=== PATIENT | male | born 1965 | race Caucasian/White ===

== ENCOUNTER 2016-04-08 07:49 | Emergency (ER) ==
--- NOTE | 2016-04-08 09:10 | Diag Imaging Result Document ---
PROCEDURE NAME: FLAT/UPRIGHT ABD/1 VIEW CHEST - 04/08/2016 FLAT AND UPRIGHT ABDOMEN: FINDINGS: There is some stool in the cecum and rectosigmoid colon. The small bowel and stomach are not distended. There is no evidence of organomegaly or mass. IMPRESSION: Constipation. PA CHEST: FINDINGS: There is a calcified granuloma in the left upper lobe. There is some fullness in the upper right hilum. There are no previous radiographs available for comparison. Otherwise, there is no evidence of acute pulmonary disease. IMPRESSION: Granulomatous changes. Advise comparison with previous studies.
[2016-04-08] MEDS ORDERED: CITRATE OF MAGNESIA PO ONE (09:27)
--- NOTE | 2016-04-08 09:32 | PROVIDER DOCUMENTATION ---
HPI-Abdominal Pain/GI Problem - General Chief Complaint: Constipation Stated Complaint: CONSTIPATED,PASSING BLOOD Time Seen by Provider: 04/08/16 09:27 Source: patient, family - History of Present Illness-ABD Nature of Presenting Problems: Presents to er with cc of constipation x 3 days. Reports last meal last night porkchops and bread. States brother has cancer unknown"has polyps". Denies taking any otc medication or prescribed medications. States been taking exlax with no relief. Denies n,v,d. Abdominal Pain Onset Location: reports: generalized abdomen Quality of Pain: reports: aching Severity in ED: reports: moderate Onset/Duration: reports: 3 days ago Timing: reports: still present Last BM: 1 week ago Dark Stools Present?: reports: none noticed Rectal Pain: reports: none Emesis Description: reports: none Bruising or Bleeding Gums?: No Similar Symptoms Previously?: No Recently seen or treated by another doctor?: No Review of Systems - Adult - REVIEW OF SYSTEMS - ADULT Constitutional: denies: chills, fever, fatique Eyes: reports: no symptoms reported Ears, Nose, Mouth & Throat: reports: no symptoms reported Cardiovascular: denies: chest pain, irregular heart rate, orthopnea Respiratory: reports: no symptoms reported Gastrointestinal: reports: abdominal pain, constipation. denies: diarrhea, nausea, rectal bleeding, vomiting Genitourinary: reports: no symptoms reported Musculoskeletal: reports: no symptoms reported Integumentary: reports: no symptoms reported Neurological: reports: no symptoms reported Psychiatric: reports: no symptoms reported Endocrine: reports: no symptoms reported Hematologic/Lymphatic: reports: no symptoms reported Allergic/Immunologic: reports: no symptoms reported All Other Systems: Reviewed and Negative Past History - Adult - PAST MEDICAL HISTORY-ADULT Review of Records: reports: Nursing Assessment Review, Medications Reviewed Major Childhood Illnesses: reports: denies history Cardiovascular: reports: denies history - PRIOR SURGERIES/PROCEDURES Surgical/Procedure History: reports: orthopedic (extremity) (right arm) - IMMUNIZATION STATUS Childhood Immunizations: See Nurse Assessment Flu Vaccine: See Nurse Assessment - FAMILY HISTORY Family History: reviewed, not pertinent - SOCIAL HISTORY Smoking: cigarettes, greater than 1 pack/day Provider spent 3-5 mins advising pt. on dangers of tobacco.: Discussed manners to quit use, and f/u contacts for add'l counseling. Substance Use: marijuana Physical Exam-General - PHYSICAL EXAM-ADULT Initial Vital Signs Reviewed: Yes - CONSTITUTIONAL General Appearance: appears well, alert, no apparent distress - EYES Eyes: PERRL/EOMI, pink conjunctivae - HEAD, EARS, NOSE, MOUTH & THROAT HENMT: normocephalic/atraumatic, moist mucous membranes, normal ENT inspection - NECK Neck: non-tender, full range of motion, supple, normal inspection - RESPIRATORY Respiratory: chest non-tender, lungs clear, normal breath sounds, no pleuratic chest pain, no respiratory distress, no accessory muscle use - CARDIOVASCULAR Cardiovascular: normal peripheral pulses, regular rate, rhythm, no edema, no gallop, no JVD, no murmur - GASTROINTESTINAL (ABDOMEN) Abdominal Exam: normal bowel sounds, soft, no organomegaly, no pulsatile mass, tenderness (mod llq) - GENITOURINARY Rectal Exam: other (large stools present; was unable to cooperate while MD tried to remove stool) - LYMPHATIC Lymphatic: no adenopathy - MUSCULOSKELETAL Back Exam: normal inspection, no CVA tenderness, no vertebral tenderness Extremity: normal range of motion, non-tender, normal gait, normal inspection, no pedal edema, no calf tenderness, normal capillary refill - SKIN Integumentary: normal color, normal turgor, warm/dry - NEUROLOGIC Neurologic: grossly normal, no motor/sensory deficits - PSYCHIATRIC Psych/Mental Status: normal mood/affect, normal thought content, normal thought process, oriented x 3 Progress - PLAN OF CARE/RESULTS Progress/Plan/Lab Results: Orders Category Date Time Status FLAT/UPRIGHT ABD/1 VIEW CHEST [RAD] Stat Exams 04/08/16 08:10 Draft Magnesium Citrate [Citrate of Magnesia] Med 04/08/16 09:27 Discontinued 300 ml PO NOW ONE Vital Signs - 24 hr 04/08/16 07:53 Temperature 97.4 F L Pulse Rate 87 Respiratory 20 Rate Blood Pressure 166/87 O2 Sat by Pulse 99 Oximetry - XRAY 1 XRAY: Bilateral XRAY Study: Abdomen Impression: Abnormal XRAY Interpretation: constipation Departure - Departure Time of Disposition Order: 09:31 DIAGNOSIS: Constipation Qualifiers: Constipation type: unspecified constipation type Qualified Code(s): K59.00 - Constipation, unspecified Disposition: HOME 01 Certified Medical Emergency: Emergent Condition: Stable Additional Instructions: High Fiber Diet. Follow up with GI. Drink plenty of water ED Follow Up Instructions: You have been treated by a care provider in the Emergency Department. These instructions are being provided to you so you can have an understanding of how to care for yourself upon discharge. Upon discharge from the Emergency Department, you are responsible for making arrangements for follow-up care by a physician of your choice. Take all prescribed medications as directed. Return to the Emergency Department immediately for any new or worsening symptoms. You may call the Physician Referral phone number at [phone] to obtain a list of Physicians who are taking new patients. Referrals: None,PCP [Primary Care Provider] - Roe Gasca MD [STAFF PHYSICIAN] - Attestation - Scribe Verification/Attestation Scribe:: Herlinda Dunne Acting as Scribe for:: Shawn Valerio Scribe documention review:: This chart was documented by a scribe and accurately reflects the service the provider performed and the decisions made by the provider.
[2016-04-08] MEDS ORDERED: MOTRIN ONE (10:49)
[2016-04-08] MEDS ORDERED: MOTRIN PO ONE (10:51)
[2016-04-08 10:52] VITALS: BP 183/89
== END 2016-04-08 10:52 | disposition home or self-care (01) ==
LOC: ED 07:49
DX: K59.00 Constipation, unspecified (principal); R10.32 Left lower quadrant pain; F17.210 Nicotine dependence, cigarettes, uncomplicated; Z71.6 Tobacco abuse counseling
CPT/HCPCS: 74022; 99283

== ENCOUNTER 2018-08-08 20:58 | Inpatient (IN) ==
[2018-08-08] MEDS ORDERED: MORPHINE IV ONE (22:00)
[2018-08-08] MEDS ORDERED: ZOFRAN IV ONE (22:00)
[2018-08-08 22:20] LABS: ALB/GLOB RATIO 0.6; ALBUMIN 2.1 g/dL (3.5-5.0); CALCIUM 7.6 mg/dL (8.8-10.2); POTASSIUM 5.2 mmol/L (3.5-5.1); TOTAL BILIRUBIN 0.64 mg/dL (0.20-1.00); TOTAL PROTEIN 5.8 g/dL (6.3-8.3)
[2018-08-08 22:49] LABS: BASO# 0.01 X1000 (0.0-0.2); BASO% 0.1 % (0.0-0.8); EOS# 0.22 X1000 (0.0-0.7); EOS% 1.7 % (0.0-10.0); HEMATOCRIT 35.5 % (42.0-52.0); HEMOGLOBIN 11.1 g/dL (14.0-18.0); IMM GRAN# 0.04 X1000 (0.0-0.04); IMM GRAN% 0.3 % (0.0-0.5); LYMPH# 0.43 X1000 (1.2-3.4); LYMPH% 3.4 % (20.5-51.1); MCH 25.4 PG (27-31); MCHC 31.3 g/dL (33-37); MCV 81.2 FL (81-99); MONO# 0.17 X1000 (0.11-0.59); MONO% 1.3 % (1.7-9.3); MPV 10.5 FL (7.4-10.4); NEUT# 11.93 X1000 (1.4-6.5); NEUT% 93.2 % (42.2-75.2); PLT 143 X1000 (130-400); RBC 4.37 XMIL (4.7-6.1); RDW 17.9 % (11.5-14.5)
--- NOTE | 2018-08-09 00:14 | PROVIDER DOCUMENTATION ---
This chart was entered by Sunitha Cunningham Scribe, acting as scribe for Annie Fowler MD. HPI-Abdominal Pain/GI Problem - General Chief Complaint: Abdominal Pain Stated Complaint: abdominal pain Time Seen by Provider: 08/08/18 21:27 Source: patient, family Allergies/Adverse Reactions: Patient Allergies Allergy/AdvReac Type Severity Reaction Status Date / Time No Known Allergies Allergy Verified 06/25/18 20:20 Home Medications: Home Medication List Medication Instructions Recorded Confirmed Last Taken Type Amlodipine [Norvasc] 5 mg PO DAILY 05/03/18 05/03/18 06/30/18 History Docusate Sodium 100 mg PO DAILY 05/03/18 05/03/18 06/30/18 History Sennosides [Senna Lax] 8.6 mg PO HS 05/03/18 05/03/18 06/29/18 History Rivaroxaban [Xarelto] 5 mg PO BID 06/25/18 06/25/18 06/30/18 History - History of Present Illness-ABD Nature of Presenting Problems: 52 yom w/family at bedside c/o no appetite, not drinking, odor coming from anus and constipated. pt distended and has hernia in abd. pt has sx scar from prev hernia sx. pt has hx of st 4 colon cancer w/ resection. pt has illeostomy bag in place w/no stool in it for 4 days. pt goes to dialysis and was last seen thursday. pt usually goes to dialysis in [place] but came to [place] to receive blood. pt very thin and frail. pt rx fentanyl, reglan, sorbitol, oxycodone, zofran and nexium. pt on medicaid and doesn't have reg pcp. Abdominal Pain Onset Location: reports: generalized abdomen Pain Radiation: reports: no radiation Review of Systems - Adult - REVIEW OF SYSTEMS - ADULT Constitutional: reports: no symptoms reported. denies: chills, fever, fatique Eyes: reports: no symptoms reported Ears, Nose, Mouth & Throat: reports: no symptoms reported Cardiovascular: reports: no symptoms reported Respiratory: reports: no symptoms reported Gastrointestinal: reports: see HPI, abdominal pain (gen abd), constipation, poor appetite. denies: diarrhea, nausea, vomiting Genitourinary: reports: no symptoms reported Musculoskeletal: reports: no symptoms reported Integumentary: reports: no symptoms reported Neurological: reports: no symptoms reported Psychiatric: reports: no symptoms reported Endocrine: reports: no symptoms reported Hematologic/Lymphatic: reports: no symptoms reported Allergic/Immunologic: reports: no symptoms reported All Other Systems: Reviewed and Negative Past History - Adult - PAST MEDICAL HISTORY-ADULT Review of Records: reports: Old Records Reviewed, Nursing Assessment Review, Medications Reviewed, Social history reviewed & non-contributory. Major Childhood Illnesses: reports: denies history Cardiovascular: reports: HTN Respiratory: reports: denies history Gastrointestinal: reports: cancer (colon) Obstetrical/Gynecological: reports: denies history Genitourinary: reports: dialysis Musculoskeletal: reports: denies history Neurological: reports: denies history Endocrine/Immune: reports: denies history Other Conditions: reports: denies history - PRIOR SURGERIES/PROCEDURES Surgical/Procedure History: reports: indwelling device, bowel surgery, orthopedic (extremity) (right arm) - IMMUNIZATION STATUS Childhood Immunizations: See Nurse Assessment Flu Vaccine: See Nurse Assessment - FAMILY HISTORY Family History: reviewed, not pertinent - SOCIAL HISTORY Smoking: cigarettes, less than 1 pack/day Provider spent 3-5 mins advising pt. on dangers of tobacco.: Discussed manners to quit use, and f/u contacts for add'l counseling. Substance Use: marijuana (occ) Physical Exam-General - PHYSICAL EXAM-ADULT Initial Vital Signs Reviewed: Yes - CONSTITUTIONAL General Appearance: alert, mild distress, thin. negative: lethargic, obtunded - EYES Eyes: PERRL/EOMI, pink conjunctivae - HEAD, EARS, NOSE, MOUTH & THROAT HENMT: normocephalic/atraumatic, moist mucous membranes, normal ENT inspection, TMs normal, pharynx normal, dental decay (missing multiple teeth). negative: hearing deficit, pharyngeal erythema, tonsillar exudate - NECK Neck: non-tender, full range of motion, supple, normal inspection - RESPIRATORY Respiratory: chest non-tender, lungs clear, normal breath sounds - CARDIOVASCULAR Cardiovascular: normal peripheral pulses, regular rate, rhythm - GASTROINTESTINAL (ABDOMEN) Abdominal Exam: normal bowel sounds, no pulsatile mass, distended, tenderness (gen abd), hernia. negative: non tender, soft, no organomegaly, abdominal bruit, abnormal bowel sounds, rigid, rebound - LYMPHATIC Lymphatic: no adenopathy - MUSCULOSKELETAL Back Exam: normal inspection, no CVA tenderness, no vertebral tenderness Extremity: normal range of motion, non-tender, normal inspection, deformity (bilat toes). negative: erythema, inflammation, slow capillary refill, tenderness Peripheral Pulses: dorsalis-pedis (R): 2+, dorsalis-pedis (L): 2+ - SKIN Integumentary: normal turgor, warm/dry, pallor. negative: normal color - NEUROLOGIC Neurologic: grossly normal, no motor/sensory deficits - PSYCHIATRIC Psych/Mental Status: normal mood/affect, normal thought content, normal thought process, oriented x 3, disheveled. negative: disoriented x 3, anxious, depressed affect Progress - PLAN OF CARE/RESULTS Progress/Plan/Lab Results: Vital Signs - 8 hr 08/08/18 21:34 Temperature 97.9 F Pulse Rate 112 H Respiratory Rate 18 Blood Pressure 137/98 O2 Sat by Pulse Oximetry 96 Orders Category Date Time Status CT ABDOMEN/PELVIS W/O CONTRAST [CT] Stat Exams 08/08/18 21:36 Ordered BLOOD CULTURE [BLDCUL] Stat Lab 08/08/18 21:37 Ordered CBC WITH ELECTRONIC DIFF [HEME] Stat Lab 08/08/18 21:37 Ordered COMPREHENSIVE METABOLIC PANEL [CHEM] Stat Lab 08/08/18 21:37 Ordered LACTATE, PLASMA [CHEM] Stat Lab 08/08/18 21:37 Ordered Result Diagrams: 08/08/18 22:30 08/08/18 21:16 - CT/MRI 1 CT Study: Abdomen (Impression: 1. Status post resection of the distal colon and/or rectumj. Masslike changes involving the pelvis, left greater than right may reflect neoplasm. 2. Large ascites may be secondary to underlying bowel process. 3. Marked distention of the gallbladder. 4. Moderate bilateral hydronephorosis and ureteral dilation likely secondary to pelvic pathology or prior surgery.), Pelvis Impression: Abnormal Comparison with other Films: no prior study - CONSULTS/PCP/HOSPITALIST Notification #1 *Consult/PCP/Hospitalist*: Time Discussed: 23:44 Reason/Comments: med team admit pt Consult Disposition: Admit #2 Consult: Dr. friend Time Discussed: 23:50 (pt will stay in [place] ) Reason/Comments: Dr. Friend admit pt, pt had option to go to [facility] or stay in [place] Consult Disposition: Admit Departure - Departure Date of Disposition Decision: 08/09/18 Time of Disposition Decision: 00:13 DIAGNOSIS: Abdominal pain Disposition: ADMITTED INPATIENT 09 Certified Medical Emergency: Emergent Condition: Good Referrals and Follow-Ups: None,PCP [Primary Care Provider] - - Critical Care Note This patient required my direct & personal management of CC.: No Attestation - Physician/ MAVERICK Attestation Patient care was provided by Advanced Practice Provider:: No The physician spent face to face time with patient:: Yes Advanced Practice Provider documentation review:: Supervising physician onsite and consulted in the evaluation and care of this patient. The physician did have a face to face encounter with the patient. This chart was documented by the indicated scribe, (Sunitha Cunningham Scribe) and accurately reflects the services I performed and decisions made by me, Annie Fowler MD, as attested by the provider's signature.
[2018-08-09] MEDS: MORPHINE IV PRN ×2 (01:29→04:49)
--- NOTE | 2018-08-09 02:49 | HISTORY AND PHYSICAL ---
PRIMARY CARE PHYSICIAN: None. CHIEF COMPLAINT: Abdominal pain. HISTORY OF PRESENTING ILLNESS: The patient is a 52-year-old male with a history of metastatic colon cancer, end-stage renal disease and DVT, who had presented to the emergency department with several days history of worsening abdominal pain. The patient apparently had a colon resection and has a colostomy bag, and he was having some follow-up at [facility]. However, it seems that they had recommended the patient go on hospice and he was reluctant to do that. He was seen in the emergency department due to worsening abdominal pain. His case was discussed with General Surgery due to the fact that the patient had a new mass seen on imaging and having probable bowel obstruction, patient will need admission for further management. At the time of my examination the patient denied any headache, fever, chills,chest pain or shortness of breath. He complained of abdominal pain. The patient is a poor historian. PAST MEDICAL HISTORY: Includes metastatic colon cancer, end-stage renal disease, and DVT. PAST SURGICAL HISTORY: Colectomy, colostomy bag, prostate surgery, bladder surgery. ALLERGIES: No known drug allergies. CURRENT MEDICATIONS: Include amlodipine 5 mg p.o. daily, pantoprazole 40 mg p.o. daily, aspirin 81 mg p.o. daily, fentanyl patch. SOCIAL HISTORY: A 30 pack-year history of smoking. No history of alcohol or illicit drug use. FAMILY HISTORY: Positive for coronary artery disease in mother. REVIEW OF SYSTEMS: Fourteen point review of systems is as in the HPI. Other systems negative. PHYSICAL EXAMINATION: GENERAL: A cooperative friendly male. He is frail and seemed lethargic, but he is without any respiratory distress. VITAL SIGNS: Temperature 97.9 degrees, pulse 112, respirations 18, blood pressure 137/98. HEENT: Atraumatic and normocephalic. Extraocular movements intact. PERRLA. NECK: No masses. CHEST: Clear to auscultation. CARDIOVASCULAR: Regular rate and rhythm. ABDOMEN: Has diffuse tenderness. Colostomy bag noted. EXTREMITIES: No edema. NEUROLOGIC: Nonfocal. SKIN: Warm. LABORATORIES AND STUDIES: WBC 12.80, hemoglobin 11.1, hematocrit 35.5, platelets 143,000. Sodium 138, potassium 5.2, chloride 95, CO2 is 21, BUN is 62, creatinine is 6.0, glucose is 84. ASSESSMENT: The patient is a 52-year-old male with a history of metastatic colon cancer, end- stage renal disease and DVT, who had presented to the emergency department with several days history of worsening abdominal pain. The patient had imaging done which did showed possible new mass; his case was discussed with General Surgery and apparently he will be admitted for further evaluation and management. 1. Abdominal pain. 2. Metastatic colon cancer. 3. End-stage renal disease. 4. Malnutrition with cachexia. PLAN: 1. We will admit the patient to medical floor. 2. Keep the patient nothing per oral. 3. General Surgery already consulted. 4. Continue with gentle hydration. 5. Consult Nephrology for dialysis. 6. We will continue to follow, reassess and make further recommendation based on the patient's clinical course. cc: Hank Friend MD MTDD
--- NOTE | 2018-08-09 05:44 | Diag Imaging Result Doc PS360 ---
EXAM: CT ABDOMEN/PELVIS W/O CONTRAST HISTORY: abdominal pain, obstruction TECHNIQUE: CT abdomen and pelvis without contrast COMPARISON: None. FINDINGS: There are right lower lobe infiltrates and atelectasis. Moderate to prominent ascites. The gallbladder is distended. No calcified stones. No focal hepatic lesion. Spleen is small. Normal pancreas and adrenal glands. There are multiple bilateral renal cysts and tiny stones. Mild bilateral hydronephrosis. The distal ureters are obscured. Prominent atherosclerosis. No aortic aneurysm. Prominent stool throughout the colon. There are sutures and postsurgical changes noted in the pelvis from apparent: Resection. Prominent soft tissue mixed with fat low in the pelvis. IMPRESSION: 1.Apparent distal colon resection with masslike appearance in the pelvis and about the anus which may reflect local recurrence. 2.Right lower lobe infiltrates and atelectasis 3.Ascites 4.Nonobstructing renal stones with mild hydronephrosis 5.Prominent atherosclerosis 6.A preliminary report was given at 10:53 PM on 08/08/2018 This exam was performed using automated exposure control, adjustment of mA or kV according to patient size, and/or use of iterative reconstruction technique. Electronically signed by Jake Suarez 08/09/2018 5:42 AM
--- NOTE | 2018-08-09 07:41 | Diag Imaging Result Doc PS360 ---
EXAM: CHEST-1 VIEW INDICATION: confirm NGT placement TECHNIQUE: One view COMPARISON: 04/08/2016 FINDINGS: The newly placed NG tube is identified. The tip projects below the diaphragm and is assumed to be in the lumen of the stomach in the expected position. There is a Vas-Cath in place in the right with the tip projecting over the region of the atriocaval junction. The lungs are overexposed due to focus on the NG tube. No discrete airspace consolidation is identified. There is a stable granuloma in the left upper lung zone. The cardiomediastinal silhouette and central vasculature are grossly unremarkable. Gas-distended loops of small bowel which were also seen on a very recent CT are again noted. IMPRESSION: NG tube in expected position as described. Electronically signed by Pancho Cunningham 08/09/2018 7:39 AM
--- NOTE | 2018-08-09 07:41 | GENERAL SURGERY CONSULTATION ---
DATE: 08/09/2018 REQUESTING PHYSICIAN: Hospitalist. REASON FOR CONSULTATION: Bowel obstruction. HISTORY OF PRESENT ILLNESS: A 52-year-old gentleman with what sounds like stage IV colon cancer, treated by Dr. Carrington at [facility], now presenting with a bowel obstruction. He was seen in the emergency department, had a CT scan that confirmed a bowel obstruction. He has been admitted by the hospitalist. He is mostly complaining of pain in his abdomen, decrease in appetite. He apparently had an ileostomy done at [facility]. He is also apparently on dialysis where he usually goes to [facility]. He has tried all sorts of pain medicine to try to help, but he did not improve. He also had a history of DVT. I was asked to weigh an opinion. PAST MEDICAL HISTORY: Includes hypertension, colon cancer stage IV, DVT, end-stage renal disease requiring dialysis. PAST SURGICAL HISTORY: Includes bowel surgery, indwelling catheter placement, orthopedic surgery. FAMILY HISTORY: Reviewed with the patient and noncontributory. SOCIAL HISTORY: Still smokes. HOME MEDICATIONS: Norvasc, senna, Xarelto. ALLERGIES: None. REVIEW OF SYSTEMS: A full 10-point review of systems obtained and negative except as specified in the HPI. PHYSICAL EXAMINATION: Vital Signs: The patient is currently afebrile. He does have a heart rate in the low 100s, but otherwise his blood pressure is stable. General: A chronically ill, cachectic-looking male, looks older than stated age. HEENT: Normocephalic, atraumatic. Pupils equal, round, reactive to light. Mucous membranes moist. Oropharynx benign. Neck: Supple trachea midline. Cardiovascular: Regular rate and rhythm. Lungs: Grossly clear. Abdomen: Protuberant. Ileostomy, or at least some kind of ostomy, in the left lower quadrant. No drainage in the ostomy appliance. He has got previous surgical scars that appear to be healing. He has some diffuse tenderness. Extremities: Cachectic. Neurologic: Grossly intact. Skin: No signs of jaundice. Vascular: All extremities perfused. LABORATORY DATA: White blood cell count is 12, hematocrit 35, platelet count 143,000. Remainder of labs reviewed. CT scan independently reviewed and preliminary radiology report reviewed. ASSESSMENT AND PLAN: A 52-year-old with bowel obstruction in the setting of stage IV colon cancer. Bowel obstruction in the setting of colon cancer: At this time, I would recommend just NG tube and decompression. He would be high risk for any kind of surgical intervention. It looks like he still has a persistent mass down in his pelvis, and the patient said that they could not resected it all, so I imagine this represents continued growth of the mass. He is not an ideal surgical candidate, and we would like to, again, try to treat him nonoperatively, but we will see how he does. My partners will follow him while I am out of town this week. cc: Waldo Cifuentes MD
[2018-08-09 08:46] LABS: ALBUMIN 2.1 g/dL (3.5-5.0); CALCIUM 8.1 mg/dL (8.8-10.2); CREATININE 6.2 mg/dL (0.7-1.2); PHOSPHORUS 9.9 mg/dL (2.7-4.5); POTASSIUM 5.7 mmol/L (3.5-5.1)
[2018-08-09] MEDS: DILAUDID IV PRN ×5 (08:49→23:08)
[2018-08-09] MEDS ORDERED: HEPARIN IV PRN (10:10)
[2018-08-09] MEDS ORDERED: NS 2,000 ML MISC PRN (10:10)
--- NOTE | 2018-08-09 13:00 | NEPHROLOGY CONSULTATION ---
DATE: 08/09/2018 REASON FOR ADMISSION: Abdominal discomfort and pain with known colon cancer. REASON FOR CONSULT: End-stage renal disease. HISTORY OF PRESENT ILLNESS: Mr. Ritchie is a 52-year-old white male with a known history of metastatic colon cancer with end-stage renal disease, DVT. Patient presented to the emergency department yesterday afternoon for worsening abdominal pain, had a recent colon resection with colostomy bag. Presented to the emergency room, was found to have a new mass on imaging with questionable bowel obstruction. He denies at this time any chest pain. No increased work of breathing. No headaches, fever or chills. No nausea, vomiting, decreased appetite. Abdominal pain is positive. The patient is a poor historian. PAST MEDICAL HISTORY: Metastatic colon cancer, end-stage renal disease, DVT, anemia of chronic disease. PAST SURGICAL HISTORY: Colectomy, colostomy bag, prostate surgery, bladder surgery, tunnel dialysis catheter to the right chest wall. SOCIAL HISTORY: A 30 pack per year smoker. No history of alcohol or illicit drug use or abuse. FAMILY HISTORY: Positive coronary artery disease with mother. No end-stage renal disease. ALLERGIES: Listed as no known drug allergies. HOME MEDICATIONS: Have yet to be reconciled. REVIEW OF SYSTEMS: Times 10 with pertinent positives listed above in the HPI. PHYSICAL EXAMINATION: Vital Signs: Most recent vital signs show temperature 98.1, blood pressure 145/93, heart rate 97, respirations 20. He is on 4 L nasal cannula, last recorded saturation 100%. He has had 0 recorded in or out. General: This is a 52-year-old white male who appears in no acute distress. He appears chronically ill and cachectic in appearance. HEENT: Normocephalic, atraumatic. Conjunctivae pale. He has JOCELYNE. Mucous membranes are dry. Neck: Supple. Trachea midline. No evidence of JVD. Cardiovascular: Regular rate and rhythm. He is slightly tachycardic. He is currently on O2. Abdomen: Protuberant with an ileostomy with colostomy bag in place. Hypo bowel sounds. Genitourinary: Not inspected. Minimal void with dialysis assist. Extremities: No edema. No clubbing or cyanosis. Neurological: He is alert to person and to place. LABORATORY STUDIES: Sodium 138, potassium 5.7, chloride 96, CO2 21, BUN 69, creatinine 6.2, glucose is 94. Anion gap of 21, calcium 8.1 phosphorus 9.9, albumin is 2.1. Previous hemoglobin of 11.1. ASSESSMENT AND PLAN: 1. Chronic kidney disease, stage 5D. The patient is due for his routine dialysis treatment today. We will place him on a 2K bath, 3.5 hours and attempt to pull to his outpatient dry weight. 2. Electrolytes and acid-base balance with correction on dialysis. 3. Anemia. Patient received 2 units of packed red blood cells on Thursday on an outpatient basis. No indications for intervention today. 4. Bowel obstruction in the context of stage IV colon cancer. Surgery has been consulted with recommendations of decompression. 5. Poor catheter function. Will ask surgery for a new tunneled catheter. rg I would like to thank you for allowing us to follow with this patient. Dictated by DANTE Fuller for Roberto Wilder MD Face to face encounter, data reviewed, discussed with Blanca Santos on 08/09/18. I agree with the above assessment and plan of care. susie cc: DANTE Fuller MD [facility]
[2018-08-09] MEDS ORDERED: HEPARIN 25,000 UNITS/D5W 25,000 UNIT/250 ML IV.SOLN IV SCH (13:30)
--- NOTE | 2018-08-09 14:00 | PROGRESS NOTE ---
DATE: 08/09/2018 SUBJECTIVE: The patient presenting with symptoms of abdominal obstruction. Has known stage IV colon cancer. A CT scan consistent with obstruction related to mass. History is somewhat scant as patient is a poor historian and most of his care has been at [facility]. OBJECTIVE: Surgery has been consulted for and recommends conservative therapy. The patient with NG tube to suction. Treating symptomatically. Nephrology on board for dialysis. Today is his usual dialysis day. Will likely dialyze today. CT of the abdomen and pelvis also showing a likely pneumonia of the right lower lobe. Hopefully, we will place patient on Rocephin and Azithromycin for possible community-acquired pneumonia. Given home therapy with Xarelto for DVT. Will place patient on heparin drip for now until final decision regarding surgery is made.
[2018-08-09] MEDS: ZITHROMAX 500 MG/NS 500 MG/250 ML IVPB IV SCH (14:06)
[2018-08-09] MEDS: ROCEPHIN 1 GM in NS 50 ML IV SCH (14:06)
[2018-08-09] MEDS ORDERED: CATHFLO IV ONE ×4 (14:58→16:06)
[2018-08-09] MEDS ORDERED: STERILE WATER INJ. INJ ONE ×2 (14:59→16:06)
[2018-08-10] MEDS: DILAUDID IV PRN ×6 (02:07→23:59)
[2018-08-10] MEDS ORDERED: TIGHT: 0.2 ML/HR FOR DIALYSIS MISC PRN (05:45)
[2018-08-10] MEDS ORDERED: NS 2,000 ML MISC PRN (05:45)
[2018-08-10] MEDS ORDERED: HEPARIN IV PRN (05:45)
[2018-08-10] MEDS ORDERED: DIPRIVAN 1% ONE (06:25)
[2018-08-10] MEDS ORDERED: XYLOCAINE-MPF 2% ONE (06:25)
[2018-08-10] MEDS ORDERED: NS 250 ML ONE (06:34)
[2018-08-10] MEDS ORDERED: XYLOCAINE 1%/EPI 1:100,000 ONE (06:34)
[2018-08-10 06:54] LABS: EOS# 0.01 X1000 (0.0-0.7); EOS% 0.1 % (0.0-10.0); HEMATOCRIT 34.9 % (42.0-52.0); HEMOGLOBIN 10.9 g/dL (14.0-18.0); IMM GRAN# 0.03 X1000 (0.0-0.04); IMM GRAN% 0.3 % (0.0-0.5); LYMPH# 0.34 X1000 (1.2-3.4); LYMPH% 2.9 % (20.5-51.1); MCH 25.7 PG (27-31); MCHC 31.2 g/dL (33-37); MCV 82.3 FL (81-99); MONO# 0.17 X1000 (0.11-0.59); MONO% 1.5 % (1.7-9.3); NEUT# 11.14 X1000 (1.4-6.5); NEUT% 95.2 % (42.2-75.2); PLT 115 X1000 (130-400); RBC 4.24 XMIL (4.7-6.1); RDW 17.9 % (11.5-14.5); WBC 11.69 X1000 (4.8-10.8)
[2018-08-10] MEDS ORDERED: HEPARIN ONE (06:57)
[2018-08-10 07:20] LABS: ANISOCYTOSIS 1+; BANDS 8 % (0-1); LARGE PLATELETS 1+; LYMPHS 2 % (21-51); SEGS 90 % (42-75)
[2018-08-10] MEDS ORDERED: QUELICIN (DOSE) ONE (07:32)
[2018-08-10 07:36] LABS: CREATININE 7.2 mg/dL (0.7-1.2)
[2018-08-10 07:53] LABS: POTASSIUM 6.3 mmol/L (3.5-5.1)
--- NOTE | 2018-08-10 12:55 | PROGRESS NOTE ---
DATE: 08/10/2018 INTERVAL HISTORY: The patient is seen while on dialysis. Still complaining of significant abdominal pain. No bowel movement so far. No acute events overnight. No new complaints. REVIEW OF SYSTEMS: A 12-point review of systems is negative except as per interval history. LABORATORY DATA: WBC 11.69, hemoglobin 10.9, hematocrit 34.9, platelets 115,000. Sodium 142, potassium 6.3, bicarb 22, BUN 79, creatinine 7.2, calcium 8, glucose 85. VITAL SIGNS: T-max 98.1 degrees, pulse 96, respirations 21, blood pressure 145/95, O2 saturation 100% on 4 L by nasal cannula. PHYSICAL EXAMINATION: General: No acute distress. Chronically ill-appearing. Significant muscle wasting/cachexia. HEENT: Normocephalic, atraumatic. Cachexia as above. No cervical adenopathy. Cardiovascular: Regular rate and rhythm at the time of my exam. No murmurs noted. Pulmonary: Clear to auscultation bilaterally. Abdomen: Slightly distended. Ileostomy with bag in place. Bowel sounds significantly hypoactive but some sounds are present. Extremities: Peripheral pulses decreased but intact. No clubbing or cyanosis. Neurologic: Cranial nerves grossly intact. Globally weak but no focal deficits identified. Psychiatric: Normal mood and affect. Awake, alert, oriented x3. Skin: No new rashes or lesions identified. ASSESSMENT AND PLAN: 1. Advanced stage colon cancer with obstruction. Surgery on board and recommending conservative management. Nasogastric tube in place with ongoing drainage. No improvement so far. Continue conservative management and we will recheck abdominal x-ray in the morning. 2. End-stage renal disease. Nephrology following. Management as per them. 3. Hyperkalemia. Nephrology planning on dialysis today, which should treat this. 4. Possible pneumonia. CT abdomen with possible lower lobe pneumonia. On antibiotics with Rocephin and azithromycin for this. Continue to monitor. 5. Chronic pain. Continue home medications and with Dilaudid for breakthrough. 6. History of recent deep venous thrombosis. Patient with deep venous thrombosis 3 to 4 months ago. We will continue on heparin drip for now in case he needs further procedures.
[2018-08-10] MEDS ORDERED: HEPARIN 25,000 UNITS/D5W 25,000 UNIT/250 ML IV.SOLN IV SCH (15:45)
[2018-08-10 16:25] LABS: INR 0.91
--- NOTE | 2018-08-10 16:54 | ECHO REPORT ---
ORDER DATE: 08/09/2018 INDICATION: Metastatic colon cancer, end-stage renal disease. DVT. FINDINGS: This is an extremely difficult study with poor windows. In addition, the patient was not able to tolerate the procedure despite analgesics being given. 1. Right atrium appears mildly enlarged. There is a linear echo density, probably consistent with a catheter tip noted in the right heart chambers. 2. The right ventricle appears to have normal RV systolic function. 3. The left ventricle was very difficult to visualize. The LV systolic function is extremely difficult to estimate. It appears to be reduced, but windows or so poor and endocardial border resolution is so difficult, accurate estimate is very limited. 4. Doppler evaluation on this patient is very limited. No obvious severe valvular abnormalities, but there was poor evaluation of the mitral valve and aortic valves due to patient compliance as well as imaging difficulties. 5. There is no pericardial effusion identified. cc: MD Clare Santos CRNP
[2018-08-10] MEDS ORDERED: NS 500 ML ONE (17:26)
[2018-08-10] MEDS: ROCEPHIN 1 GM in NS 50 ML IV SCH (17:28)
--- NOTE | 2018-08-10 19:17 | NEPHROLOGY PROGRESS NOTE ---
DATE: 08/10/2018 DATE AND TIME: Date seen 08/10/2018. Time seen Is 0635. SUBJECTIVE: Mr. Ritchie is resting quietly in bed. Was unable to dialyze yesterday. He is planned for a dialysis tunneled catheter placement today. He is n.p.o.. OBJECTIVE: His most recent vital signs: Temperature 97.5, blood pressure 138/91, heart rate 101, respirations are 10. He is on 4 L nasal cannula. Last recorded saturation 100%. He has had 0 recorded in. He has had 800 mL out to NG tube, dark coffee-ground colored material. LABS: Sodium 142, potassium 6.3, chloride 95, CO2 22, BUN 79, creatinine 7.2, glucose is 85. His anion gap is 25. Calcium is 8. White count 11.69, hemoglobin 10.9, hematocrit 34.9, with a platelet count of 115,000. PHYSICAL EXAMINATION: General: This is a 52-year-old male who appears chronically ill no acute distress. Skin: Warm and dry. HEENT: Normocephalic, atraumatic. Conjunctiva is pale pink. He has JOCELYNE. Mucous membranes are dry. Neck: Supple. He does have positive JVD. Cardiovascular: Regular rate and rhythm. S4 is present. Lungs: Clear to auscultation bilaterally with an occasional inspiratory wheeze. Remains on O2 supplementation. Abdomen: Quiet, slightly tender noted, bilateral, all 4 quadrants. NG tube remains to low intermittent suction with coffee-ground color material. Genitourinary: Not inspected. Patient has minimal void with dialysis assist. Extremities: Have 1+ lower extremity edema. No clubbing or cyanosis. Integumentary: Patient does appear cachectic, thin and frail. No acute distress. ASSESSMENT AND PLAN: 1. Chronic kidney disease stage 5D. The patient is due for his routine dialysis treatment today secondary to having a clotted catheter and unable to dialyze yesterday. We are waiting for Dr. Peña for placement of a dialysis tunneled catheter and then will plan for dialysis immediately afterwards. 2. Electrolytes and acid-base balance. Patient has hyperkalemia, again with correction on dialysis. 3. Anemia. This remains fairly stable at 10.9. 4. Small bowel obstruction. This is followed by Primary Care and Surgical Care Team with planned decompression of the abdomen at this time. I would to thank you for allowing us to follow with this patient. Dictated by DANTE Fuller for Roberto Wilder MD Face to face encounter, data reviewed, discussed with Blanca Santos on 08/10/18. I agree with the above assessment and plan of care. cc: DANTE Fuller MD [facility]
[2018-08-10] MEDS: ZITHROMAX 500 MG/NS 500 MG/250 ML IVPB IV SCH (20:50)
[2018-08-11] MEDS ORDERED: HEPARIN IV ONE ×2 (01:23→10:47)
[2018-08-11] MEDS ORDERED: HEPARIN 25,000 UNITS/D5W 25,000 UNIT/250 ML IV.SOLN IV SCH ×3 (01:25→18:31)
[2018-08-11] MEDS: DILAUDID IV PRN ×7 (03:03→21:42)
[2018-08-11] MEDS ORDERED: NS 2,000 ML MISC PRN (08:06)
[2018-08-11] MEDS ORDERED: TIGHT: 0.2 ML/HR FOR DIALYSIS MISC PRN (08:06)
[2018-08-11] MEDS ORDERED: HEPARIN IV PRN (08:06)
--- NOTE | 2018-08-11 09:19 | OPERATIVE NOTE ---
PROCEDURE DATE: 08/11/2018 PREOPERATIVE DIAGNOSES: 1. Malfunctioning dialysis catheter. 2. End-stage renal disease. POSTOPERATIVE DIAGNOSES: 1. Malfunctioning dialysis catheter. 2. End-stage renal dialysis. PROCEDURE: Exchange of tunneled dialysis catheter with fluoroscopic guidance. SURGEON: Anjel Peña MD. ANESTHESIA: General. ESTIMATED BLOOD LOSS: 5 mL. COMPLICATIONS: None apparent. TECHNIQUE: The patient was brought to the operating room and placed supine on the table. General anesthesia was induced. He was prepped and draped in usual sterile fashion including his indwelling nonfunctioning tunneled catheter. I was able to pass a wire through the catheter easily and fluoroscopy confirmed that the wire was in the right atrium. I then removed the catheter leaving the wire in place. I then passed the dilator and sheath over the wire under fluoroscopic guidance with the tip of the dilator at the superior vena cava right atrial junction. I then removed the dilator and wire leaving the sheath in the track. I then placed a new curved tunneled dialysis catheter through the sheath and peeled the sheath away. The tip of the catheter was left at the superior vena cava right atrial junction. The cuff was left in a subcutaneous position. Both ports walter back blood and were flushed with saline. I then put sterile caps on the port. The port was anchored to the skin with nylon suture. A 3-0 Polysorb was used to close down the exit track at the skin level. He was awakened in stable condition and transferred to the recovery room. cc: Anjel Peña MD
[2018-08-11 09:36] LABS: ALBUMIN 2.1 g/dL (3.5-5.0); CALCIUM 7.4 mg/dL (8.8-10.2); PHOSPHORUS 8.1 mg/dL (2.7-4.5); POTASSIUM 4.6 mmol/L (3.5-5.1)
[2018-08-11 10:06] LABS: BASO# 0.01 X1000 (0.0-0.2); BASO% 0.1 % (0.0-0.8); EOS# 0.01 X1000 (0.0-0.7); EOS% 0.1 % (0.0-10.0); HEMATOCRIT 33.4 % (42.0-52.0); HEMOGLOBIN 10.1 g/dL (14.0-18.0); IMM GRAN# 0.03 X1000 (0.0-0.04); IMM GRAN% 0.3 % (0.0-0.5); LYMPH# 0.27 X1000 (1.2-3.4); LYMPH% 2.6 % (20.5-51.1); MCH 25.5 PG (27-31); MCHC 30.2 g/dL (33-37); MCV 84.3 FL (81-99); MONO# 0.19 X1000 (0.11-0.59); MONO% 1.8 % (1.7-9.3); MPV 11.3 FL (7.4-10.4); NEUT# 9.79 X1000 (1.4-6.5); NEUT% 95.1 % (42.2-75.2); PLT 92 X1000 (130-400); RBC 3.96 XMIL (4.7-6.1)
[2018-08-11 10:44] LABS: BANDS 8 % (0-1); HYPOCHROM 1+; LYMPHS 2 % (21-51); SEGS 90 % (42-75)
--- NOTE | 2018-08-11 14:43 | PROGRESS NOTE ---
DATE: 08/11/2018 INTERVAL HISTORY: The patient's abdominal discomfort is somewhat improved. Beginning to have some scant output from his ostomy. Abdomen is slightly less distended. Palliative care spoke with the patient this afternoon. Apparently, the patient's PCP had been in the process of setting the patient up with hospice. The patient is considering going home with hospice. Uncertain if the patient understands the implications of this with discontinuation of dialysis. We will attempt to clarify. If the patient truly wants to go home with hospice, then this will likely be set up and ready to go tomorrow. REVIEW OF SYSTEMS: A 12-point review of systems is negative except as per interval history. LABS: WBC 10.3, hemoglobin 10.1, hematocrit 33.4, platelets 92,000. Sodium 144, potassium of 4.6, bicarb 20, BUN 57, creatinine 5.0, calcium 7.4, phosphate 3.1. VITAL SIGNS: T-max 98.8, pulse 105, respirations 16, blood pressure 124/86, O2 saturation 92% on 3 L by nasal cannula. PHYSICAL EXAMINATION: General: No acute distress. Chronically ill-appearing. Significant cachexia noted. HEENT: Normocephalic, atraumatic. Muscle wasting as above. No cervical adenopathy. Cardiovascular: Slightly tachycardic but regular. No murmurs noted. Pulmonary: Clear to auscultation bilaterally. Abdomen is slightly distended but improved from previous. Mild to moderate diffuse tenderness without rebound or guarding. Ileostomy with bag in place. Stable hernia. Bowel sounds remain hypoactive but present. Extremities: Peripheral pulses decreased but intact. No clubbing or cyanosis. Neurologic: Cranial nerves grossly intact. Globally weak but no focal deficits identified. Psychiatric: Normal mood and affect. Awake, alert, and oriented x3. Skin: No new rashes or lesions identified. ASSESSMENT AND PLAN: 1. Advanced stage colon cancer with bowel obstruction. Surgery on board and recommended conservative management. Nasogastric tube in place with ongoing drainage. Symptomatically slightly improved and is starting to have some scant output from his ostomy. Repeat x-ray pending. Continue conservative management unless patient elects to go home with hospice. 2. End-stage renal disease. Nephrology following. Going for a Vas-Cath change out today as his previous catheter was clotted off and nonfunctional. Likely dialysis after the line change. 3. Hyperkalemia, improved with partial dialysis yesterday. 4. Possible pneumonia. CT of the abdomen with possible lower lobe pneumonia. On antibiotics with Rocephin and azithromycin for this. Continue to monitor. 5. Chronic pain. Continue home medications with Dilaudid for breakthrough pain. 6. History of recent lower extremity deep venous thrombosis. Patient with lower extremity deep venous thrombosis 3 or 4 months ago. Continue on heparin drip aside from holding for procedures. 7. Ascites noted incidentally on CT. 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
--- NOTE | 2018-08-11 15:04 | NEPHROLOGY PROGRESS NOTE ---
DATE: 08/11/2018 DATE AND TIME OF EXAM: 08/11/2018 at 0820 hours. SUBJECTIVE: Mr. Ritchie is resting quietly in bed. Head of the bed is elevated. He is eating some ice chips with large amounts of coffee-ground material dumping into his NG tube via suction canister. States that he is feeling slightly better. OBJECTIVE: Vital Signs: Temperature 98.8 degrees, blood pressure 119/83, heart rate 117, respirations are 18. He is on room air. Last recorded saturation 91%. He has had 509 in, 1056 out. General: This is a 52-year-old white male. He appears older than his stated age. He has appearance of chronically ill, no acute distress. Skin: Warm and dry. HEENT: Normocephalic, atraumatic. Conjunctiva is pale pink. He has JOCELYNE. Mucous membranes are dry. Neck: Supple. Trachea midline. He has trace JVD in the upright position. Cardiovascular: Regular rate and rhythm. S4 is present. Lungs: Clear to auscultation bilaterally. Equal excursion with inspiratory wheeze. Remains on O2 supplementation. Abdomen: Quiet. He has an NG tube to low intermittent suction with coffee-ground material noted. Genitourinary: Not inspected. Minimal void with dialysis assist. Extremities: Have trace lower extremity edema. No clubbing or cyanosis. Integumentary: Thin skin. Patient appears cachectic. No rashes or lesions. LABORATORY DATA: Sodium is 144, potassium 4.6, chloride 99, CO2 20. BUN 57, creatinine 5, glucose is 79. Anion gap is 25, calcium 7.4, phosphorus 8.1, albumin 2.1. White count 10.3, hemoglobin 10.1, hematocrit 33.4 with a platelet count of 92 with a PTT of 34.3. ASSESSMENT AND PLAN: 1. Chronic kidney disease stage 5 D. The patient had a dialysis catheter exchange yesterday. He dialyzed yesterday for 3-1/2 hours. This is his regular scheduled dialysis treatment day. We will schedule him for dialysis for 3 hours a day, place him on a 2 potassium bath, attempt to pull patient to his outpatient dry weight only. Allow patient to rest in the morning. This will allow us to get patient back on his routine outpatient scheduled appointment. 2. Electrolytes and acid-base balance. This is acceptable. 3. Anemia. This is stable. 4. Small bowel obstruction, followed by primary care and surgical care team. I would like to thank you for allowing us to follow with this patient. Dictated by DANTE Fuller for Roberto Wilder MD cc: DANTE Fuller MD
--- NOTE | 2018-08-11 18:02 | GENERAL SURGERY PROGRESS NOTE ---
DATE: 08/11/2018 SUBJECTIVE: The patient says he feels a little better. He still has some abdominal pain, but not as much. He is starting to have some air and stool come through his colostomy. OBJECTIVE: Vital Signs: He is afebrile. Vital signs are stable. Pulse is in the low 100s this afternoon. CV: Tachycardic and regular. Respiratory: No work of breathing. GI: Soft. Mild diffuse tenderness. No rebound or guarding. His colostomy does have some air and stool in the bag. IMAGING: His abdominal x-rays have not been done yet. ASSESSMENT AND PLAN: A 52-year-old male with small bowel obstruction and known stage IV colon cancer. We will check the x-rays. If they are negative, then I think we could clamp his nasogastric tube and let him drink a clear liquid diet overnight, and see how he tolerates this. cc: Anjel Peña MD
[2018-08-11] MEDS: ROCEPHIN 1 GM in NS 50 ML IV SCH (18:26)
--- NOTE | 2018-08-11 19:09 | Diag Imaging Result Doc PS360 ---
EXAM: KUB ABDOMEN - 08/11/2018 HISTORY: SBO TECHNIQUE: Portable AP spine abdomen COMPARISON: 08/08/2018 CT abdomen/pelvis without contrast FINDINGS: There is gaseous bowel distention similar to the recent CT scan. There is a nasogastric tube is tip at the proximal to mid stomach. IMPRESSION: Gaseous bowel distention similar to recent CT scan. Electronically signed by Mateo Hurtado 08/11/2018 7:07 PM
[2018-08-11] MEDS: ZITHROMAX 500 MG/NS 500 MG/250 ML IVPB IV SCH (19:56)
[2018-08-12] MEDS: DILAUDID IV PRN ×7 (00:39→21:32)
[2018-08-12] MEDS ORDERED: HEPARIN IV ONE ×3 (02:40→17:46)
[2018-08-12] MEDS: HEPARIN 25,000 UNITS/D5W 25,000 UNIT/250 ML IV.SOLN IV SCH ×2 (02:48→11:54)
[2018-08-12] MEDS ORDERED: DURAGESIC 50 MICROGM/HR PATCH TD SCH (06:00)
[2018-08-12] MEDS ORDERED: TIGHT: 0.2 ML/HR FOR DIALYSIS MISC PRN (06:47)
[2018-08-12] MEDS ORDERED: NS 2,000 ML MISC PRN (06:47)
[2018-08-12] MEDS ORDERED: HEPARIN IV PRN (06:47)
[2018-08-12 07:01] LABS: EOS# 0.01 X1000 (0.0-0.7); EOS% 0.1 % (0.0-10.0); HEMATOCRIT 31.1 % (42.0-52.0); HEMOGLOBIN 9.4 g/dL (14.0-18.0); IMM GRAN# 0.02 X1000 (0.0-0.04); IMM GRAN% 0.2 % (0.0-0.5); LYMPH# 0.35 X1000 (1.2-3.4); LYMPH% 4.2 % (20.5-51.1); MCH 25.1 PG (27-31); MCHC 30.2 g/dL (33-37); MCV 83.2 FL (81-99); MONO# 0.09 X1000 (0.11-0.59); MONO% 1.1 % (1.7-9.3); NEUT# 7.95 X1000 (1.4-6.5); NEUT% 94.4 % (42.2-75.2); PLT 80 X1000 (130-400); RBC 3.74 XMIL (4.7-6.1); RDW 17.6 % (11.5-14.5); WBC 8.42 X1000 (4.8-10.8)
[2018-08-12 07:08] LABS: ALBUMIN 1.8 g/dL (3.5-5.0); CALCIUM 7.4 mg/dL (8.8-10.2); CREATININE 3.8 mg/dL (0.7-1.2); PHOSPHORUS 6.3 mg/dL (2.7-4.5); POTASSIUM 3.5 mmol/L (3.5-5.1)
--- NOTE | 2018-08-12 15:51 | NEPHROLOGY PROGRESS NOTE ---
DATE: 08/12/2018 SUBJECTIVE: Patient is sitting up in bed. He is wanting his NG-tube out. OBJECTIVE: Vital Signs: Temperature 98.5 degrees, pulse 109, respiratory rate 20, blood pressure 101/79. Intake 459 mL. Output 2.9 L. General: This is a middle-aged gentleman, sitting up in bed. He is chronically ill-appearing. He is in no acute distress. HEENT: Normocephalic, atraumatic. Conjunctivae are pink. Oral mucosa moist. Neck: Supple without JVD. Cardiovascular: Regular rate and rhythm with an S4. Pulmonary: Clear bilaterally. Abdomen: Soft. Positive bowel sounds. : Not inspected. Extremities: No clubbing, cyanosis. He does have some trace pedal edema. Integumentary: Skin is warm and dry. LAB DATA: WBC of 8.4, hemoglobin 9.4. Sodium 143, potassium 3.5, CO2 27, creatinine 3.8, calcium 7, albumin 1.8. ASSESSMENT AND PLAN: 1. Chronic kidney disease 5D. Tomorrow is his routine dialysis day. We will draw labs and determine his dialysis bath. 2. Electrolytes, acid-base balance, anemia. These are stable. 3. Nutrition. His albumin is falling. We will dose with next the dialysis. 4. Small bowel obstruction. Followed by primary and surgery. Dictated by DANTE Blanc for Roberto Wilder MD cc: Roberto Wilder MD
[2018-08-12] MEDS: FLAGYL 500 MG/NS 500 MG/100 ML IVPB IV SCH (17:34)
--- NOTE | 2018-08-12 17:48 | PROGRESS NOTE ---
DATE: 08/12/2018 INTERVAL HISTORY: Both of the blood cultures have been growing Prevotella alec which is gram- negative bacteria. SUBJECTIVE: The patient is feeling significantly better today. He states he has had output in his ostomy and he had to change 1 of his ostomy bags which was brownish. His NG tube had feces coming out. However, his abdominal pain is significantly better and he is ready to eat something. We discussed about his history of DVT, need for anticoagulation. We discussed about positive blood cultures. I provided him 2 options in terms of his medical conditions, one being very aggressive treating his medical conditions and second being comfort measures. Currently, he wants aggressive measures and he understands that this may include remaining inside the hospital for longer than the initial plan and he wants to proceed with that. Plan of care, clinical exam findings are extensively discussed with the patient, his , and son at bedside. All of their questions have been answered. OBJECTIVE: Vital signs: Temperature of 98.4 degrees, pulse 63, respiratory rate 18, blood pressure 120/76, saturating 98% on room air. General: Cachectic, not in any acute distress. HEENT: Oral cavity is dry. No dental caries, though he has previous feelings in his teeth without any known abscess. He has an NG tube in place. Lungs: Air entry bilaterally equal. No wheeze, rhonchi, or crackles. Cardiovascular: S1, S2 normal. No murmur or gallop. Abdomen: Soft. Mildly tender. Tympanitic to percussion. There is ostomy output. Extremities: He has bilateral ankle edema. LABS: Suggestive of resolution of leukocytosis, normocytic anemia, what appears to be thrombocytopenia, elevated BUN and creatinine, hyperphosphatemia, and hypoalbuminemia. ASSESSMENT AND PLAN: 1. Advanced stage IV colon cancer with colectomy and ileostomy in the past with current presentation of small bowel obstruction. Considering his ileostomy has had output and he is no longer vomiting, I will clamp the NG tube and start the patient on a clear liquid diet. Surgery on board. 2. Gram-negative sepsis with Prevotella laec and community-acquired pneumonia on admission. It is possible the source of Prevotella is gastrointestinal. The CT scan did not detect any intraabdominal abscess, however. I will add intravenous Flagyl to his regimen and continue ceftriaxone and azithromycin for community-acquired pneumonia and follow up with repeat blood cultures. At the time of discharge I will consider changing it to p.o. antibiotics possibly. 3. History of bilateral lower extremity deep vein thrombosis. He was listed to be taking Xarelto on medication reconciliation which was not confirmed and he has been on heparin drip since admission. The patient wants aggressive measures to be done, so I will get ultrasound of the lower extremities to confirm his diagnosis of deep venous thrombosis. Continue heparin drip and start him on warfarin. I will keep checking CBC considering his thrombocytopenia. The goal INR would be between 2 to 3. 4. Chronic kidney disease stage 5, status post change of his dialysis catheter. He is on Thursday, Thursday, Thursday hemodialysis. Nephrology on board. 5. Other issues, protein energy malnutrition. I will start him on a diet. 6. Disposition. Initially the plan was for patient to go home with home hospice on dialysis on August 13. However, today the patient states that he wants aggressive measures to be done and wants his infection and DVTs to be taken care of while he thinks about long- term goals of care. I am again going to revisit the plan of care with him tomorrow and again explain to him about comfort measures versus being very aggressive in terms of his care. All of his questions currently have been answered. cc: Bradford Redd MD MTDD
[2018-08-12] MEDS ORDERED: COUMADIN PO SCH (21:00)
[2018-08-12] MEDS: ZITHROMAX 500 MG/NS 500 MG/250 ML IVPB IV SCH (23:58)
[2018-08-12] MEDS: ROCEPHIN 1 GM in NS 50 ML IV SCH (23:58)
[2018-08-13] MEDS: FLAGYL 500 MG/NS 500 MG/100 ML IVPB IV SCH ×4 (00:07→18:24)
[2018-08-13] MEDS: DILAUDID IV PRN ×7 (00:08→18:33)
--- NOTE | 2018-08-13 02:24 | GENERAL SURGERY PROGRESS NOTE ---
DATE: 08/12/2018 SUBJECTIVE: The patient feels a little better, less abdominal distention and pain. He has had some flatus and stool into his bag. He is drinking a lot of liquids. OBJECTIVE: Vital signs: He is afebrile. Pulse 103, blood pressure 120/76, O2 saturation 98%. General: He is awake, chronically ill-appearing and cachectic. Cardiovascular: Regular rate and rhythm. Respiratory: No work of breathing. Gastrointestinal: Softer, less distended. Mildly tender throughout. ASSESSMENT AND PLAN: A 52-year-old male with small-bowel obstruction and stage IV colon cancer. Currently, I would recommend continued conservative management with NG tube decompression, hydration, and treating his nausea or abdominal pain. cc: Anjel Peña MD
[2018-08-13] MEDS: HEPARIN 25,000 UNITS/D5W 25,000 UNIT/250 ML IV.SOLN IV SCH ×2 (06:05→15:30)
[2018-08-13 07:05] LABS: INR 1.06; PROTIME 14.6 Seconds (11.0-16.0)
[2018-08-13 07:11] LABS: EOS# 0.04 X1000 (0.0-0.7); EOS% 0.5 % (0.0-10.0); HEMATOCRIT 30.8 % (42.0-52.0); HEMOGLOBIN 9.4 g/dL (14.0-18.0); IMM GRAN# 0.04 X1000 (0.0-0.04); IMM GRAN% 0.5 % (0.0-0.5); LYMPH# 0.38 X1000 (1.2-3.4); LYMPH% 4.7 % (20.5-51.1); MCH 25.3 PG (27-31); MCHC 30.5 g/dL (33-37); MCV 82.8 FL (81-99); MONO# 0.12 X1000 (0.11-0.59); MONO% 1.5 % (1.7-9.3); MPV 11.8 FL (7.4-10.4); NEUT# 7.57 X1000 (1.4-6.5); NEUT% 92.8 % (42.2-75.2); PLT 79 X1000 (130-400); RBC 3.72 XMIL (4.7-6.1); RDW 17.4 % (11.5-14.5); WBC 8.15 X1000 (4.8-10.8)
[2018-08-13 07:31] LABS: ALBUMIN 1.8 g/dL (3.5-5.0); CALCIUM 7.4 mg/dL (8.8-10.2); PHOSPHORUS 7.6 mg/dL (2.7-4.5); POTASSIUM 3.6 mmol/L (3.5-5.1)
[2018-08-13] MEDS ORDERED: NS 2,000 ML MISC PRN (09:27)
[2018-08-13] MEDS ORDERED: HEPARIN IV PRN (09:27)
[2018-08-13] MEDS ORDERED: OXY IR PO ONE (10:17)
[2018-08-13] MEDS ORDERED: DILAUDID IV ONE (10:19)
[2018-08-13 16:01] VITALS: BP 125/83
--- NOTE | 2018-08-14 20:34 | DISCHARGE SUMMARY ---
ADMISSION DATE: 08/09/2018 DISCHARGE DATE: 08/13/2018 DISCHARGE DISPOSITION: Home with hospice. DISCHARGE CONDITION: The patient is alert. He is oriented. He also has an NG tube hooked up with intermittent suction. He has a right-sided dialysis port. He appears very cachectic, however, not in any acute distress. He has a colostomy bag. The patient is going on home on home hospice with dialysis as well as NG tube suction at home. DISCHARGE DIAGNOSES: 1. Small bowel obstruction. 2. Abdominal pain due to small bowel obstruction. 3. Metastatic colon cancer history with worsening abdominal mass. 4. Gram-negative sepsis with Prevotella aureus. 5. Community-acquired pneumonia. 6. Bilateral lower extremity deep venous thromboses. OTHER DIAGNOSES: 1. Chronic kidney disease stage 5, on Thursday-Thursday- Thursday hemodialysis. 2. Protein calorie malnutrition. 3. Essential hypertension. CONSULTATIONS DURING HOSPITALIZATION: 1. General Surgery, Dr. Cifuentes and Dr. Peña. 2. Nephrology, Dr. Wilder. 3. Palliative care team. DISCHARGE MEDICATIONS: 1. Fentanyl 50 mcg every 3 days. Ten patches have been prescribed. 2. Oxycodone 15 mg every 4 hours as needed for pain; 45 tablets have been prescribed. 3. Metoclopramide 5 mg every 4 hours as needed for nausea and vomiting; 30 tablets have been prescribed. 4. MiraLAX 17 grams b.i.d.; 30 powders have been prescribed. 5. Pantoprazole 40 mg daily; 30 tablets have been prescribed. VITALS AT TIME OF DISCHARGE: Temperature 97.5, pulse 95, respiratory rate 10, blood pressure 114/85, saturating 98% on 2 L nasal cannula. PHYSICAL EXAMINATION: General: The patient does not appear in any acute distress. HEENT: Oral cavity is dry. The patient appears cachectic. He has an NG tube in place, which is bringing out a maroonish output. Lungs: Air entry bilaterally equal. No wheeze, rhonchi, crackles. Cardiovascular: S1, S2 normal. No murmur, rub, or gallop. Abdomen: Soft. He has an ileostomy with brownish stool output. He also has some abdominal distention and mild tenderness and tympany to percussion. No guarding or rigidity. He has a dialysis catheter on the right side. Extremities: Bilateral ankle edema. LABORATORY DATA: At the time of discharge, WBC count is 8.15, hemoglobin 9.4, platelet count of 79. Normal electrolytes except elevated BUN and creatinine. Microbiology during hospital admission: Both the blood cultures were growing a gram-negative marianna, which was turned out to be Prevotella aureus. Repeat blood cultures were in lab, and so far did not have any growth. They were drawn on August 12. SIGNIFICANT IMAGING DURING HOSPITAL ADMISSION: Abdomen/pelvis CT on admission had apparent distal colon resection with mass-like appearance in the pelvis and about the anus suggestive of local recurrence likely. Right lower lobe infiltrate and pneumonia, ascites, and hydronephrosis with nonobstructing renal stones. Chest x-ray on August 09 had NG tube in appropriate place. Abdominal x- ray on August 11 had gaseous bowel distention. HOSPITAL COURSE SUMMARY: Mr. Ritchie is a 52-year-old man with documented history of metastatic colon cancer, end-stage renal disease on dialysis, and lower extremity DVT, who had presented to the emergency department with a several-day history of worsening abdominal pain. The patient apparently had a colon resection and a colostomy or ileostomy bag and he was following up at [facility] for his diagnosed colon cancer; however, he was recommended to go to hospice. However, the patient was reluctant to that. He was seen in the emergency room for worsening abdominal pain, and a CT scan had detected local recurrence with small bowel obstruction, and so patient was admitted for further management. An NG tube was introduced, and his small bowel was decompressed, following which he started feeling better. A clear liquid diet was started; however, his abdominal pain recurred, and he was continued on NG tube suction with pain medications. He was also found to have Prevotella aureus bacteremia, likely from intra-abdominal source. Initially, he was being treated with intravenous ceftriaxone and azithromycin for community-acquired pneumonia and later on metronidazole intravenous was added for his Prevotella bacteremia. The repeat blood cultures results were still pending. He was also detected to have bilateral lower extremity DVTs. At home, he was listed to be taking Xarelto, which was surprising since he has end-stage renal disease; however, inside the hospital he was started on a heparin drip. Considering the local recurrence, he was cachectic with malnutrition. The patient was provided options in terms of his care. He was provided an option of aggressive measures which would include treating him with IV antibiotics for his bacteremia, blood thinners for deep venous thrombosis and being very aggressive, and he was also provided hospice options where the goal was to take care of his pain and discomfort. Initially the patient wanted aggressive measure; however, after discussion with the family, he had eventually decided to go on a hospice route. The palliative care team was consulted, and arrangements were made for home hospice, where he would want to go on dialysis and NG tube suction. Prescriptions of pain medications were provided at the time of discharge. I had sat down with the patient's family and had allowed them to ask questions. All of their questions were satisfactorily answered. More than 30 minutes were spent in discharging this patient. I had called his surgeon Dr. Carrington's office to talk to him to learn more about his cancer and talked with his clinical application consultant. I also had left my cell phone number for him to call me back. However, I have not received a call back yet. According to patient's , patient's last appointment with Dr. Carrington was 1 month ago and at that appointment patient and his family were told to go home on hospice care. I don't have any official documents from [facility] and since, patient's family has decided to pursue hospice care, I would respect their wishes. cc: MD CRISTIANO Greco
--- NOTE | 2018-08-17 19:37 | Extremity Venous Study ---
PROCEDURE NAME: Venous U/S Bilateral Legs - 08/12/2018 REFERRING PHYSICIAN: Bradford Redd MD. READING PHYSICIAN: Anjel Peña MD. STEEL BUFFER: Munir. INDICATION: Metastatic colon cancer and end-stage renal disease and history of DVT. FINDINGS: The deep and superficial veins of the right lower extremity were imaged first. There is chronic nonocclusive thrombus in the right common femoral vein that remains somewhat compressible with preserved flow. Otherwise, the remaining deep and superficial veins of the right lower extremity were compressible, patent, and without thrombus. The deep and superficial veins of the left side were imaged next. There is chronic nonocclusive thrombus of the left proximal superficial femoral and deep femoral veins. They are somewhat compressible. Flow is preserved. Thrombus is present. The remaining deep and superficial veins of the left lower extremity were imaged and were compressible, patent, and without thrombus. INTERPRETATION: There is chronic nonocclusive DVT involving the right common femoral, left superficial femoral, and left deep femoral veins. cc: MD Bradford Gama MD
== END 2018-08-13 18:57 | disposition hospice, home (50) | DRG 871 ==
LOC: ED 20:58 → 4N 08-09 01:52 → SUATTDRO 08-09 01:52 → 4N 08-13 08:23
PROVIDERS: ATTEND Internal Medicine
CPT/HCPCS: 71010; 71045; 74000; 74018; 74176; 77001; 80048; 80053; 80069; 83605; 85025; 85610; 85730; 87040; 87076; 87077; 93306; 93308; 93970; 96374; 96376; 99285; A9270; C1750; C8929; J0330; J0456; J0696; J1170; J1644; J2270; J2997; J7030; J7040; J7050; Q9957; S0030